=== PATIENT | male | born 1955 | race Caucasian/White ===

== ENCOUNTER 2017-07-30 11:42 | Day surgery (SDC) | payer OTHER ==
[~2017-07-30] VITALS: Ht 180.3 cm; Wt 65.3 kg
[2017-07-30] MEDS ORDERED: VORI50TA PO (12:59)
[2017-07-30] MEDS ORDERED: ACET-2619 PO (12:59)
[2017-07-30] MEDS ORDERED: MIDAZOLAM 2 MG/2 ML VIAL ONE (13:28)
[2017-07-30] MEDS ORDERED: fentaNYL 0.05 MG/ML VIAL ONE (13:29)
[2017-07-30 13:30] LABS: HEMATOCRIT 33.8 % (36-52); HEMOGLOBIN 11.2 g/dL (12.0-18.0); MEAN CORPUSCULAR HEMOGLOBIN 31 pg (27-31); MEAN CORPUSCULAR HGB CONC 33 g/dL (33-37); MEAN CORPUSCULAR VOLUME 93 fL (80-94); PLATELET COUNT (AUTO) 339 K/uL (140-450); RED BLOOD CELL COUNT(AUTO) 3.63 MIL/uL (4.20-6.10); RED CELL DISTRIBUTION WIDTH 13.5 % (11.6-13.7); WHITE BLOOD COUNT (AUTO) 6.6 K/uL (4.8-10.8)
[2017-07-30 13:40] LABS: LYMPHOCYTES % (MANUAL) 9 % (20-46); MONOCYTES % (MANUAL) 3 % (5-12)
[2017-07-30 13:41] LABS: ANION GAP 12.5 (8-16); CARBON DIOXIDE 25.7 mmol/L (21-32); CREATININE 1.4 mg/dL (0.7-1.3); EOSINOPHILS % (MANUAL) 4 % (0-4); POTASSIUM 5.2 mmol/L (3.5-5.1)
[2017-07-30] MEDS ORDERED: SEVOFLURANE 250 ML BTL INH ONE (13:45)
[2017-07-30] MEDS ORDERED: PROPOFOL 200 MG/20 ML VIAL IV ONE (13:45)
[2017-07-30] MEDS ORDERED: SUCCINYLCHOLINE CHLORIDE 200 MG/10 ML VIAL IVP ONE (13:45)
[2017-07-30 13:50] LABS: PROTHROMBIN TIME 10.7 secs (10.8-13.4)
[2017-07-30] MEDS ORDERED: LACTATED RINGERS 1,000 ML IV SCH (14:34)
[2017-07-30] MEDS ORDERED: ONDANSETRON 4 MG/2 ML VIAL IVP PRN (14:35)
[2017-07-30] MEDS ORDERED: HYDROmorphone 1 MG/ML AMP IVP PRN (14:35)
[2017-07-30] MEDS ORDERED: diphenhydrAMINE 50 MG/ML VIAL IVP PRN (14:35)
[2017-07-30] MEDS ORDERED: MEPERIDINE 25 MG/ML SYR IVP PRN (14:35)
== END 2017-07-30 17:00 | disposition home or self-care (01) ==
LOC: MDS 11:42 → MMU 11:46 → MDS 17:00
PROVIDERS: ATTEND Internal Medicine Pulmonary Disease
DX: J47.9 Bronchiectasis, uncomplicated (principal); J44.9 Chronic obstructive pulmonary disease, unspecified; A31.0 Pulmonary mycobacterial infection; Z87.01 Personal history of pneumonia (recurrent); Z98.890 Other specified postprocedural states
CPT/HCPCS: 31623; 36415; 71045; 76000; 80048; 85025; 85610; 85730; 87070; 87102; 87116; 87190; 87206; 93005; J0330; J2250; J2704; J3010; J7120; Q0092; 87075; 87205

== ENCOUNTER 2017-08-20 08:08 | Emergency (ER) | payer OTHER ==
[~2017-08-20] VITALS: Ht 180.3 cm; Wt 70.3 kg
[~2017-08-20 08:08] MED LIST: ACET-2619 PO; VORI50TA PO
[2017-08-20 08:12] VITALS: BP 142/87
[2017-08-20] MEDS ORDERED: IBUPROFEN 600 MG TAB PO ONE (08:15)
[2017-08-20] MEDS ORDERED: IBUPROFEN 600 MG TAB ONE (08:20)
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
[2017-08-20 09:21] VITALS: BP 139/81
--- NOTE | 2017-08-20 09:22 | NUR ---
Patient discharged with v/s stable. Written and verbal after care instructions given and explained. Patient verbalized understanding. Ambulatory with steady gait. All questions addressed prior to discharge. Advised to follow up with PMD.
== END 2017-08-20 09:22 | disposition home or self-care (01) ==
LOC: MED 08:08
DX: R07.89 Other chest pain (principal); Z79.899 Other long term (current) drug therapy; V49.49XA Driver injured in collision with other motor vehicles in traffic accident, initial encounter; Y93.89 Activity, other specified; Y92.488 Other paved roadways as the place of occurrence of the external cause; Y99.8 Other external cause status
CPT/HCPCS: 71111; 81002; 99284